=== PATIENT | male | born 1950 | race Caucasian/White ===

== ENCOUNTER 2020-04-21 05:02 | Emergency (ER) | payer OTHER, MEDICARE, SELFPAY ==
[2020-04-21 05:07] VITALS: BP 156/81; RESP 16; TEMP 36.8; O2SAT 95; BMI 31.3
--- NOTE | 2020-04-21 05:29 | ED_ITS ---
Documented by User: Migdalia Valadez 04/21/20 05:33 HPI - General Adult General: Chief complaint: General Medical Stated complaint: lower abdominal pain Time Seen by Provider: 04/21/20 05:08 Source: patient and family Mode of arrival: ambulatory Limitations: no limitations History of Present Illness: HPI narrative: Mr. Richards is a nice 70-year-old male who comes in with a complaint of pain in his rectum, difficulty urinating and loose stools. Patient states he woke up yesterday with the symptoms and they have progressively gotten worse. Initially he said the pain was between his scrotum and his rectum but now he feels it is more deep up inside his rectum. Patient thought he might be constipated and took a laxative and now has very loose stools that are hard to control at times. His stools have not been bloody. Patient is on Xarelto for A. fib. Patient states that he feels like he needs to urinate but cannot. He states when he does strain a small amount of stool come out but not much urine will come out. Patient does not believe he is had a good episode of emptying his bladder since yesterday morning. Patient denies any fever, chills, nausea, vomiting or flank pain. Patient did start Xarelto recently but denies any other new medications. He denies any similar symptoms in the past. Associated symptoms: Deny chest pain, confusion, diaphoresis, dyspnea, headache(s), malaise, nausea, rash, palpitations, syncope or vomiting Review of Systems Const: Denies: fever(s), chills, body aches, fatigue, malaise or diaphoresis Eyes: Denies: change in vision, blurry vision, photophobia, eye discomfort, eye discharge, eye redness or yellow eyes ENMT: Denies: throat pain, odynophagia, hoarseness, swelling of lips/tongue, ear or mastoid pain, ear discharge, change in hearing or nasal discharge Card: Denies: chest pain, palpitations, irregular heart rhythm, edema, lightheadedness, syncope, pre-syncope, dyspnea on exertion or orthopnea Resp: Denies: dyspnea, productive cough, non-productive cough, wheezing, hemoptysis or chest congestion GI: Denies: abdominal pain, nausea, vomiting, hematemesis, coffee ground emesis, heartburn, diarrhea, constipation, GI cramping, hematochezia or melena : Denies: flank pain, dysuria, urinary frequency, urinary urgency or hematuria Musc: Denies: neck pain, back pain, extremity pain, extremity swelling, joint pain, joint swelling, joint redness, joint warmth or joint stiffness Skin/Breast: Denies: rash, pruritus, erythema, skin pain or skin tenderness Neuro: Denies: headache(s), numbness in extremities, weakness in extremities, sensory changes, lack of coordination, difficulty walking, dizziness, vertigo, confusion, Slurred speech present or seizure-like activity Rashad/Lymph: Denies: easy bruising, easy bleeding, petechiae, purpura or enlarged lymph nodes All/Imm: Denies: urticaria, throat swelling, tongue swelling, facial swelling or acute wheezing PFSH ED PFSH: Medical History (Updated 04/21/20 @ 08:44 by Bharath Macedo DO) Atrial fibrillation Physical Exam Const: COMMON NORMALS: no acute distress, patient oriented x3, no limitations and alert GENERAL APPEARANCE: cooperative HENMT: COMMON NORMALS: normocephalic, atraumatic, external ears normal, EAC's normal and Normal external nose present HEAD & SCALP: normal to inspection, normocephalic and atraumatic FACE & SINUS: normal facial exam and face symmetric NOSE: Normal external nose present and Normal nares present EXTERNAL EAR: Yes external ears normal EXTERNAL AUDITORY CANAL: EAC's normal MOUTH: Normal oral and palatal mucosa present, lip normal and tongue normal Eye: COMMON NORMALS: Equal, round and reactive pupils present and conjunctivae normal GENERAL EYE: appearance normal, both eyes and all related structures ALIGNMENT: Yes alignment normal PERIORBITAL: periorbital findings normal EYELID: eyelids normal CONJUNCTIVA: Yes conjunctivae normal SCLERA: sclerae normal PUPIL: Yes Equal, round and reactive pupils present Neck/C-Spine: COMMON NORMALS: full ROM, no lymphadenopathy, supple, no meningeal signs and no JVD GENERAL: Yes normal visual inspection and Yes trachea midline Chest: COMMONS NORMALS: normal inspection of the chest and normal palpation of entire chest wall Resp: COMMON NORMALS: normal respiratory effort, No retractions, No use of accessory muscles and clear to auscultation bilaterally EFFORT & INSPECTION: Yes able to speak in complete sentences and Yes symmetric chest movement AUSCULTATION: clear to auscultation bilaterally, no crackles, no rales, no rhonchi and no wheezes Cardio: COMMON NORMALS: no JVD, regular rate, regular rhythm, S1 normal heart sound present and S2 normal heart sound present RATE: regular rate RHYTHM: regular rhythm HEART SOUNDS: S1 normal heart sound present, S2 normal heart sound present, no click, no gallops, no murmurs and no rubs GI: COMMON NORMALS: Soft to palpation and No hepatosplenomegaly present PALPATION: Yes Soft to palpation, No Tenderness to palpation present (GI), No Guarding due to palpation present (GI), No Rigid due to palpation, Yes No hepatosplenomegaly present, No Hernia present, No Palpable mass present and No Pulsatile mass present RECTAL EXAM: Yes normal sphincter tone, Yes heme negative stool and Yes prostate abnormal tender : COMMON NORMALS: Yes no CVA tenderness BLADDER/KIDNEY EXAM: Yes no CVA tenderness PENIS: normal penis SCROTUM: Yes testes descended bilaterally and No Scrotal tenderness present TESTES: Yes testicular lie normal Back/Pelvis: COMMON NORMALS: no CVA tenderness, thoracic and lumbar spine normal to inspection, no thoracic nor lumbar tenderness and thoraco-lumbar ROM normal Extremity: COMMON NORMALS: normal to inspection, full ROM, capillary refill normal, no joint enlargement, no clubbing, cyanosis or edema and no calf tenderness Neuro: COMMON NORMALS: patient oriented x3, CN's II-XII intact bilaterally, moves all extremities, no focal motor deficits and no sensory deficits noted SENSORIUM/ORIENTATION: Yes alert MENINGEAL SIGNS: Yes no meningeal signs SPEECH: speech normal Psych: COMMON NORMALS: mental status grossly normal, Normal thought process p resent, cooperative, normal affect, speech normal and activity/motor behavior normal SPEECH: Yes normal speech THOUGHT PROCESS: Normal thought process present Skin: COMMON NORMALS: no rashes or lesions noted, turgor normal, no jaundice, no petechiae and no mottling GENERAL SKIN EXAM: no rashes or lesions noted and turgor normal Course Vital Signs: Vital signs: Vital Signs Temperature 98.2 F 04/21/20 05:07 Pulse Rate 86 04/21/20 06:50 Respiratory Rate 20 H 04/21/20 06:50 Blood Pressure 149/87 04/21/20 06:50 Pulse Oximetry 93 04/21/20 06:50 MDM - General Adult Lab Data: Labs: Lab Results 04/21/20 04/21/20 04/21/20 Range/Units 05:41 05:41 05:41 WBC 8.9 (4.0-10.0) 10^3/ uL RBC 5.02 (4.1-5.3) 10^6/u L Hgb 14.0 (11.7-16.6) g/dL Hct 43.6 (42.0-52.0) % MCV 86.9 (80-94) fL MCH 27.9 L (28.0-34.0) pg MCHC 32.1 (30.0-36.0) g/dL RDW 15.9 H (12.1-15.1) % Plt Count 296 (130-400) 10^3/c mm MPV 9.8 (7.4-10.4) fL Neut % (Auto) 72.1 % Lymph % (Auto) 19.2 % [place] % (Auto) 6.9 % Eos % (Auto) 0.6 % Baso % (Auto) 0.6 % Neut # (Auto) 6.42 (1.8-7.7) 10^3/u L Lymph # (Auto) 1.7 (0.8-4.8) 10^3/u L [place] # (Auto) 0.6 (0.2-0.9) 10^3/u L Eos # (Auto) 0.1 (0.0-0.8) 10^3/u L Baso # (Auto) 0.1 (0.0-0.1) 10^3/u L Nucleated RBC % (a uto) 0 % Nucleated RBCs # 0.0 /100WBC PT 14.50 (12.1-14.9) SECO NDS INR 1.09 (0.8-1.2) Sodium 139 (136-145) mmol/L Potassium 3.9 (3.5-5.1) mmol/L Chloride 101 (98-107) mmol/L Carbon Dioxide 26 (22-29) mmol/L Anion Gap 15.9 (5-19) BUN 13 (8-23) mg/dL Creatinine 0.9 (0.7-1.2) mg/dL GFR Calculation 83.9 L (90-130) mL/min Glucose 118 H (65-115) mg/dL Calculated Osmolal ity 289 (285-295) mOsm/k g Calcium 8.8 (8.5-10.5) mg/dL Total Bilirubin 0.3 (0.15-1.2) mg/dL AST 18 (0-40) U/L ALT 15 (0-41) U/L Alkaline Phosphata se 118 (40-130) IU/L Total Protein 7.2 (6.6-8.7) g/dL Albumin 4.1 (3.5-5.2) g/dL Globulin 3.1 (1.3-4.6) g/dL Urine Color (Yellow) Urine Appearance (CLEAR) Urine pH (5-7) Ur Specific Gravit y (1.005-1.030) Urine Protein (Negative) Urine Glucose (UA) (Normal) Urine Ketones (Negative) Urine Blood (Negative) Urine Nitrate (Negative) Urine Bilirubin (Negative) Urine Urobilinogen (Negative) mg/dL Ur Leukocyte Tania ase (Negative) Urine RBC (0-2) /hpf Urine WBC (0-5) /hpf Ur Squamous Epith Cells (0-5) /hpf Amorphous Sediment Urine Bacteria (NONE) /hpf 04/21/20 Range/Units 06:30 WBC (4.0-10.0) 10^3/ uL RBC (4.1-5.3) 10^6/u L Hgb (11.7-16.6) g/dL Hct (42.0-52.0) % MCV (80-94) fL MCH (28.0-34.0) pg MCHC (30.0-36.0) g/dL RDW (12.1-15.1) % Plt Count (130-400) 10^3/c mm MPV (7.4-10.4) fL Neut % (Auto) % Lymph % (Auto) % [place] % (Auto) % Eos % (Auto) % Baso % (Auto) % Neut # (Auto) (1.8-7.7) 10^3/u L Lymph # (Auto) (0.8-4.8) 10^3/u L [place] # (Auto) (0.2-0.9) 10^3/u L Eos # (Auto) (0.0-0.8) 10^3/u L Baso # (Auto) (0.0-0.1) 10^3/u L Nucleated RBC % (a uto) % Nucleated RBCs # /100WBC PT (12.1-14.9) SECO NDS INR (0.8-1.2) Sodium (136-145) mmol/L Potassium (3.5-5.1) mmol/L Chloride (98-107) mmol/L Carbon Dioxide (22-29) mmol/L Anion Gap (5-19) BUN (8-23) mg/dL Creatinine (0.7-1.2) mg/dL GFR Calculation (90-130) mL/min Glucose (65-115) mg/dL Calculated Osmolal ity (285-295) mOsm/k g Calcium (8.5-10.5) mg/dL Total Bilirubin (0.15-1.2) mg/dL AST (0-40) U/L ALT (0-41) U/L Alkaline Phosphata se (40-130) IU/L Total Protein (6.6-8.7) g/dL Albumin (3.5-5.2) g/dL Globulin (1.3-4.6) g/dL Urine Color Straw (Yellow) Urine Appearance Clear (CLEAR) Urine pH 7 (5-7) Ur Specific Gravit y 1.010 (1.005-1.030) Urine Protein Neg (Negative) Urine Glucose (UA) Norm (Normal) Urine Ketones Negative (Negative) Urine Blood 2+ H (Negative) Urine Nitrate Negative (Negative) Urine Bilirubin Neg (Negative) Urine Urobilinogen Norm (Negative) mg/dL Ur Leukocyte Tania ase Negative (Negative) Urine RBC 10-15 H (0-2) /hpf Urine WBC None (0-5) /hpf Ur Squamous Epith Cells None (0-5) /hpf Amorphous Sediment Not Reportable Urine Bacteria 1+ H (NONE) /hpf Discharge Plan Discharge Patient Disposition: Home Clinical Impression: Bladder outlet obstruction, Benign prostatic hyperplasia, Constipation Condition: Stable Prescriptions: New tamsulosin 0.4 mg capsule 0.4 mg PO DAILY Qty: 30 RF: 0 magnesium citrate Solution 148 ml PO BID PRN (Reason: constipation) Qty: 296 RF: 0 Discharge Orders: Discharge ED (Routine); Ordered 04/21/20 Ordered By: Bharath Macedo Referrals: Martell Clay MD [Physician] - Activity Restrictions/Additional Instructions: Case management will call with a referral to Dr. Clay for management of the Daly catheter. Sign Out Sign Out Data: Patient Sign Out occurred on 04/21/20 at 06:13. Patient's care was discussed, and care was transferred from to Bharath Macedo DO. Coding Level of Care Code ED Hand Carver for Chg Fwd Exam Comprehensive Documented by User: Bharath Macedo DO 04/21/20 09:02 HPI - General Adult General: Chief complaint: General Medical Stated complaint: lower abdominal pain Time Seen by Provider: 04/21/20 05:08 [facility] ED PFSH: Medical History (Updated 04/21/20 @ 08:44 by Bharath Macedo DO) Atrial fibrillation Course Vital Signs: Vital signs: Vital Signs Temperature 98.2 F 04/21/20 05:07 Pulse Rate 86 04/21/20 06:50 Respiratory Rate 20 H 04/21/20 06:50 Blood Pressure 149/87 04/21/20 06:50 Pulse Oximetry 93 04/21/20 06:50 MDM - General Adult MDM Narrative: Medical decision making narrative: Symptoms mostly relieved by placement of the Daly had [address] shows large amount of constipation but there is no evidence of abscess or diverticulitis. Offered patient enema he declined ready use oral laxatives. We will discharge him home with a Daly bag tamsulosin, Mag citrate and then have him follow-up with Dr. Clay next week. Lab Data: Labs: Lab Results 04/21/20 04/21/20 04/21/20 Range/Units 05:41 05:41 05:41 WBC 8.9 (4.0-10.0) 10^3/ uL RBC 5.02 (4.1-5.3) 10^6/u L Hgb 14.0 (11.7-16.6) g/dL Hct 43.6 (42.0-52.0) % MCV 86.9 (80-94) fL MCH 27.9 L (28.0-34.0) pg MCHC 32.1 (30.0-36.0) g/dL RDW 15.9 H (12.1-15.1) % Plt Count 296 (130-400) 10^3/c mm MPV 9.8 (7.4-10.4) fL Neut % (Auto) 72.1 % Lymph % (Auto) 19.2 % [place] % (Auto) 6.9 % Eos % (Auto) 0.6 % Baso % (Auto) 0.6 % Neut # (Auto) 6.42 (1.8-7.7) 10^3/u L Lymph # (Auto) 1.7 (0.8-4.8) 10^3/u L [place] # (Auto) 0.6 (0.2-0.9) 10^3/u L Eos # (Auto) 0.1 (0.0-0.8) 10^3/u L Baso # (Auto) 0.1 (0.0-0.1) 10^3/u L Nucleated RBC % (a uto) 0 % Nucleated RBCs # 0.0 /100WBC PT 14.50 (12.1-14.9) SECO NDS INR 1.09 (0.8-1.2) Sodium 139 (136-145) mmol/L Potassium 3.9 (3.5-5.1) mmol/L Chloride 101 (98-107) mmol/L Carbon Dioxide 26 (22-29) mmol/L Anion Gap 15.9 (5-19) BUN 13 (8-23) mg/dL Creatinine 0.9 (0.7-1.2) mg/dL GFR Calculation 83.9 L (90-130) mL/min Glucose 118 H (65-115) mg/dL Calculated Osmolal ity 289 (285-295) mOsm/k g Calcium 8.8 (8.5-10.5) mg/dL Total Bilirubin 0.3 (0.15-1.2) mg/dL AST 18 (0-40) U/L ALT 15 (0-41) U/L Alkaline Phosphata se 118 (40-130) IU/L Total Protein 7.2 (6.6-8.7) g/dL Albumin 4.1 (3.5-5.2) g/dL Globulin 3.1 (1.3-4.6) g/dL Urine Color (Yellow) Urine Appearance (CLEAR) Urine pH (5-7) Ur Specific Gravit y (1.005-1.030) Urine Protein (Negative) Urine Glucose (UA) (Normal) Urine Ketones (Negative) Urine Blood (Negative) Urine Nitrate (Negative) Urine Bilirubin (Negative) Urine Urobilinogen (Negative) mg/dL Ur Leukocyte Tania ase (Negative) Urine RBC (0-2) /hpf Urine WBC (0-5) /hpf Ur Squamous Epith Cells (0-5) /hpf Amorphous Sediment Urine Bacteria (NONE) /hpf 04/21/20 Range/Units 06:30 WBC (4.0-10.0) 10^3/ uL RBC (4.1-5.3) 10^6/u L Hgb (11.7-16.6) g/dL Hct (42.0-52.0) % MCV (80-94) fL MCH (28.0-34.0) pg MCHC (30.0-36.0) g/dL RDW (12.1-15.1) % Plt Count (130-400) 10^3/c mm MPV (7.4-10.4) fL Neut % (Auto) % Lymph % (Auto) % [place] % (Auto) % Eos % (Auto) % Baso % (Auto) % Neut # (Auto) (1.8-7.7) 10^3/u L Lymph # (Auto) (0.8-4.8) 10^3/u L [place] # (Auto) (0.2-0.9) 10^3/u L Eos # (Auto) (0.0-0.8) 10^3/u L Baso # (Auto) (0.0-0.1) 10^3/u L Nucleated RBC % (a uto) % Nucleated RBCs # /100WBC PT (12.1-14.9) SECO NDS INR (0.8-1.2) Sodium (136-145) mmol/L Potassium (3.5-5.1) mmol/L Chloride (98-107) mmol/L Carbon Dioxide (22-29) mmol/L Anion Gap (5-19) BUN (8-23) mg/dL Creatinine (0.7-1.2) mg/dL GFR Calculation (90-130) mL/min Glucose (65-115) mg/dL Calculated Osmolal ity (285-295) mOsm/k g Calcium (8.5-10.5) mg/dL Total Bilirubin (0.15-1.2) mg/dL AST (0-40) U/L ALT (0-41) U/L Alkaline Phosphata se (40-130) IU/L Total Protein (6.6-8.7) g/dL Albumin (3.5-5.2) g/dL Globulin (1.3-4.6) g/dL Urine Color Straw (Yellow) Urine Appearance Clear (CLEAR) Urine pH 7 (5-7) Ur Specific Gravit y 1.010 (1.005-1.030) Urine Protein Neg (Negative) Urine Glucose (UA) Norm (Normal) Urine Ketones Negative (Negative) Urine Blood 2+ H (Negative) Urine Nitrate Negative (Negative) Urine Bilirubin Neg (Negative) Urine Urobilinogen Norm (Negative) mg/dL Ur Leukocyte Tania ase Negative (Negative) Urine RBC 10-15 H (0-2) /hpf Urine WBC None (0-5) /hpf Ur Squamous Epith Cells None (0-5) /hpf Amorphous Sediment Not Reportable Urine Bacteria 1+ H (NONE) /hpf Discharge Plan Discharge Patient Disposition: Home Clinical Impression: Bladder outlet obstruction, Benign prostatic hyperplasia, Constipation Condition: Stable Prescriptions: New tamsulosin 0.4 mg capsule 0.4 mg PO DAILY Qty: 30 RF: 0 magnesium citrate Solution 148 ml PO BID PRN (Reason: constipation) Qty: 296 RF: 0 Discharge Orders: Discharge ED (Routine); Ordered 04/21/20 Ordered By: Bharath Macedo Referrals: Martell Clay MD [Physician] - Activity Restrictions/Additional Instructions: Case management will call with a referral to Dr. Clay for management of the Daly catheter. Sign Out Sign Out Data: Patient Sign Out occurred on 04/21/20 at 06:13. Patient's care was discussed, and care was transferred from to Bharath Macedo DO. Coding Level of Care Code ED Hand Carver for Chg Fwd Exam Comprehensive
[2020-04-21] MEDS: sodium chloride 0.9% 1,000 ML 100 ML IV (06:00)
[2020-04-21 06:10] LABS: Basophils # 0.1 10^3/uL (0.0-0.1); Basophils % 0.6 %; Eosinophils # 0.1 10^3/uL (0.0-0.8); Eosinophils % 0.6 %; Hematocrit 43.6 % (42.0-52.0); Lymphocytes # 1.7 10^3/uL (0.8-4.8); Lymphocytes % 19.2 %; Mean Corpuscular HGB Conc 32.1 g/dL (30.0-36.0); Mean Corpuscular Hemoglobin 27.9 pg (28.0-34.0); Mean Corpuscular Volume 86.9 fL (80-94); Mean Platelet Volume 9.8 fL (7.4-10.4); Monocytes # 0.6 10^3/uL (0.2-0.9); Monocytes % 6.9 %; Neutrophils # 6.42 10^3/uL (1.8-7.7); Neutrophils % 72.1 %; Nucleated Red Blood Cells % 0 %; Platelet Count 296 10^3/cmm (130-400); Red Blood Count 5.02 10^6/uL (4.1-5.3); Red Cell Distribution Width 15.9 % (12.1-15.1); White Blood Count 8.9 10^3/uL (4.0-10.0)
[2020-04-21 06:15] VITALS: RESP 24; O2SAT 94
[2020-04-21] MEDS: morphine 4 mg/mL SDV 1 mL IVP (06:15)
[2020-04-21 06:22] LABS: INR 1.09 (0.8-1.2)
[2020-04-21 06:27] LABS: Alanine Aminotransferase 15 U/L (0-41); Albumin Level 4.1 g/dL (3.5-5.2); Alkaline Phosphatase 118 IU/L (40-130); Anion Gap 15.9 (5-19); Aspartate Amino Transferase 18 U/L (0-40); Blood Urea Nitrogen 13 mg/dL (8-23); Calcium 8.8 mg/dL (8.5-10.5); Carbon Dioxide 26 mmol/L (22-29); Chloride 101 mmol/L (98-107); Globulin 3.1 g/dL (1.3-4.6); Glomerular Filtration Rate 83.9 mL/min (90-130); Glucose 118 mg/dL (65-115); Osmolality Calculated 289 mOsm/kg (285-295); Potassium 3.9 mmol/L (3.5-5.1); Sodium 139 mmol/L (136-145); Total Bilirubin 0.3 mg/dL (0.15-1.2); Total Protein 7.2 g/dL (6.6-8.7)
[2020-04-21 06:50] VITALS: BP 149/87; PULSE 86; RESP 20; O2SAT 93
--- NOTE | 2020-04-21 06:57 | PC.NURSE ---
700cc urine return. Dr jalloh
[2020-04-21 07:00] VITALS: BP 139/84; PULSE 84; O2SAT 91
[2020-04-21 07:26] LABS: Bacteria Urine 1+ /hpf; Bilirubin Urine Neg (Negative); Blood Urine 2+ (Negative); Glucose Urine UA Norm (Normal); Ketones Urine Negative (Negative); Leukocyte Esterase Urine Negative (Negative); Nitrate Urine Negative (Negative); Protein Urine Neg (Negative); Urine Appearance Clear (CLEAR); Urine Color Straw (Yellow); Urobilinogen Urine Norm (Negative); pH Urine 7 (5-7)
[2020-04-21 07:27] LABS: Add Urine Culture? No
--- NOTE | 2020-04-21 07:34 | CTR_ITS ---
PROCEDURE INFORMATION: Exam: CT Abdomen And Pelvis With Contrast Exam date and time: 04/21/2020 7:40 AM Age: 70 years old Clinical indication: Abdominal pain; Localized; Lower; Additional info: Abd pain/pelvic pain TECHNIQUE: Imaging protocol: Computed tomography of the abdomen and pelvis with intravenous contrast. Radiation optimization: All CT scans at this facility use at least one of these dose optimization techniques: automated exposure control; mA and/or kV adjustment per patient size (includes targeted exams where dose is matched to clinical indication); or iterative reconstruction. Contrast material: OMNI 300; Contrast volume: 95 ml; Contrast route: INTRAVENOUS (IV); COMPARISON: No relevant prior studies available. RADIATION DOSE METRICS: Total DLP (mGy-cm): 1443.15 FINDINGS: Lungs: Interstitial prominence, chronic granulomatous disease, and left basilar airspace disease. Small hiatal hernia. Liver: No focal hepatic mass. Gallbladder and bile ducts: No cholelithiasis or biliary ductal dilatation. Pancreas: No pancreatic mass or ductal dilatation. Spleen: Splenic granulomata. Adrenal glands: Unremarkable adrenals. Kidneys and ureters: Nodular hypodensities in the right kidney, including a 2.1 cm lateral cyst. No hydronephrosis . Mild bilateral infiltration of perinephric fat. Stomach and bowel: Wall thickening in the nondistended stomach. No significant small bowel dilatation. Prominent stool in a pattern of constipation and impending fecal impaction, with the stool-filled rectum measuring 6 cm in transverse dimension. Mild infiltration of perirectal fat. Diverticula, without pericolonic inflammation. Appendix: No acute appendicitis. Intraperitoneal space: No free fluid. Vasculature: Prominent vascular calcification. No abdominal aortic aneurysm. Lymph nodes: Subcentimeter lymph nodes. Urinary bladder: Daly catheter in the decompressed bladder. Reproductive: Punctate prostate calcification. Bones/joints: Osteopenia and T11 compression deformity. Schmorl's nodes and vertebral endplate irregularity. Degenerative change prior Soft tissues: Small fat containing umbilical and inguinal hernias. CT/CT abdomen pelvis w con* [id number] IMPRESSION: 1. Wall thickening in the nondistended stomach. 2. Prominent stool in a pattern of constipation and impending fecal impaction, with the stool-filled rectum measuring 6 cm in transverse dimension. 3. Additional findings as described above. COMMENTS: Consistent with the [employer]'s Incidental Findings Committee white paper (J Am Laura Radiol 2018): Any incidental renal lesion less than 1 cm or classified as too small to characterize, or any incidental cystic renal lesion characterized as simple-appearing, is likely benign. No follow-up imaging is recommended for these lesions per consensus recommendations based on imaging criteria. Radiation Dose CTDIVOL = (mGy): DLP = 1443.15 (mGy-cm)
[2020-04-21 07:45] VITALS: BP 152/88; PULSE 82; O2SAT 92
[2020-04-21] MEDS: iohexol 300 mg/mL 100 mL Btl IV (07:59)
[2020-04-21 08:45] VITALS: BP 173/101; PULSE 83; O2SAT 94
--- NOTE | 2020-04-23 08:38 | DCPLANNER ---
Addendum entered by Nasrin Albert 04/23/20 08:41: Patient has [facility] insurance, disability case manager will email Eugenia with [facility] with patients information, so that a consult can be placed for the patient for a referral to Dr. Clay. Original Note: rehab therapy manager had message to schedule a follow up appointment for patient with Dr. Clay. rehab therapy manager called the office of Dr. Clay, spoke with Shea, gave clinic patients information. rehab therapy manager was told that patients information would be printed and reviewed. Clinic will call patient with appointment information.
--- NOTE | 2020-04-27 08:27 | DCPLANNER ---
Patient has a follow up appointment scheduled for Thursday, May 09, [address] at 8:[address] Clay. Clinic will call patient with appointment information.
--- NOTE | 2020-06-01 14:19 | DCPLANNER ---
Patient had a follow up appointment scheduled for 05.09.[address] Clay - patient did attend the appointment.
== END 2020-04-21 09:03 | disposition home or self-care (01) ==
PROVIDERS: Emergency Medicine; Emergency Provider Family Medicine
DX: N40.0 Benign prostatic hyperplasia without lower urinary tract symptoms (principal); N32.0 Bladder-neck obstruction; K59.00 Constipation, unspecified; I48.91 Unspecified atrial fibrillation
CPT/HCPCS: 12345; 36415; 51702; 51798; 74177; 80053; 81001; 85025; 85610; 96374; 99283; J2270; J7030; Q9967

== ENCOUNTER 2020-04-21 17:27 | Emergency (ER) | payer OTHER, SELFPAY ==
[2020-04-21 17:50] VITALS: BP 122/81; PULSE 89; RESP 18; TEMP 36.8; O2SAT 96; BMI 31.3
--- NOTE | 2020-04-21 18:00 | ED_ITS ---
HPI - General Adult General: Chief complaint: Abdominal Pain Stated complaint: abd pain, constipation Time Seen by Provider: 04/21/20 17:46 History of Present Illness: HPI narrative: Patient is a 70-year-old male comes to the ED with constipation. Patient says he was seen here in the ED earlier this morning for urinary retention and had a Daly catheter placed. CT of the abdomen was performed and patient says they told him he had a lot of stool in his bowels. They sent him home with some mag citrate. Patient says he is drink the mag citrate and has taken MiraLAX as well and has not had any bowel movement today. He says it has been approximately 2 days since his last bowel movement and he did say that last BM was hard and he had to strain to get it out. He has some generalized abdominal pain due to constipation. Associated symptoms: Deny chest pain, dyspnea, headache(s), nausea, rash, palpitations or vomiting Review of Systems Const: Denies: fever(s), chills or fatigue Eyes: Denies: change in vision or eye discomfort ENMT: Denies: throat pain, odynophagia, nasal discharge or nasal congestion Card: Denies: chest pain, palpitations, edema, swelling of feet/ankles, dyspnea on exertion or orthopnea Resp: Denies: dyspnea, productive cough or non-productive cough GI: Reports: abdominal pain (Generalized) and constipation; Denies: nausea, vomiting, diarrhea or hematochezia : Denies: flank pain, difficulty urinating, dysuria or hematuria Musc: Denies: neck pain, back pain or extremity swelling Skin/Breast: Denies: rash or new lesions Neuro: Denies: headache(s), numbness in extremities or weakness in extremities PFS ED PFSH: Medical History Anticoagulation adequate with anticoagulant therapy Atrial fibrillation Chest pain Essential hypertension SOB (shortness of breath) Family History Other CAD (coronary artery disease) Cancer Diabetes Social History Smoking and tobacco status: current every day smoker cigarettes Alcohol intake: current Alcohol intake frequency: 0-2 Drinks per Day Household members: spouse Marital status: service: Yes branch: [employer] Physical Exam Const: COMMON NORMALS: no acute distress, patient oriented x3 and alert GENERAL APPEARANCE: cooperative and comfortable HENMT: COMMON NORMALS: normocephalic HEAD & SCALP: normocephalic MOUTH: Normal oral and palatal mucosa present THROAT: posterior oropharynx normal and uvula midline Neck/C-Spine: COMMON NORMALS: supple GENERAL: Yes normal visual inspection Resp: COMMON NORMALS: normal respiratory effort, No retractions, No use of accessory muscles and clear to auscultation bilaterally AUSCULTATION: clear to auscultation bilaterally Cardio: COMMON NORMALS: regular rate, regular rhythm, S1 normal heart sound present, S2 normal heart sound present, No gallops present (Cardio), No clicks present (Cardio), No murmurs present (Cardio) and Peripheral pulses 2+ through out RATE: regular rate RHYTHM: regular rhythm HEART SOUNDS: S1 normal heart sound present and S2 normal heart sound present PERIPHERAL PULSES: Peripheral pulses 2+ throughout GI: COMMON NORMALS: Normal to inspection, nondistended, normoactive bowel sounds present and no masses PALPATION: Yes Firmness to palpation present (GI) and Yes Tenderness to palpation present (GI) (Mild tenderness throughout abdomen.) : COMMON NORMALS: Yes no CVA tenderness BLADDER/KIDNEY EXAM: Yes catheter in place and Yes no CVA tenderness Back/Pelvis: COMMON NORMALS: no CVA tenderness Extremity: COMMON NORMALS: normal to inspection and no pedal edema Neuro: COMMON NORMALS: patient oriented x3 and moves all extremities SENSORIUM/ORIENTATION: Yes alert Skin: GENERAL SKIN EXAM: dry skin Course Reevaluation(s): Reevaluation #1: Patient was able to pass a little bit of stool after first milk and molasses enema. He still feels like he has more that could come out. He would like another enema and I informed him to stand up and ambulate around the room to help progress bowel movement. Time: 20:16 Reevaluation #2: Patient received a second milk and molasses enema and quite a bit of stool has come out. He says he is feeling a lot better currently. I did check to the bedside commode and saw significant amount of hard formed stool in pot and it appears that most of the fecal impaction as been expelled. I discussed with patient about high-fiber diets and drinking plenty of water. I also told on him and put him on some MiraLAX and Colace to help with bowel movements. Patient is ready to be discharged home. Time: 21:53 Vital Signs: Vital signs: Vital Signs Temperature 98.2 F 04/21/20 17:50 Pulse Rate 82 04/21/20 22:09 Respiratory Rate 18 04/21/20 22:09 Blood Pressure 122/77 04/21/20 22:09 Pulse Oximetry 96 04/21/20 22:09 MDM - General Adult MDM Narrative: Medical decision making narrative: Patient is a 70-year-old male comes to the ED with constipation. He was seen here in the ED earlier in the morning of April 21 for urinary retention. Daly catheter was placed and the CT of his abdomen showed possible fecal impaction developing. He was discharged with mag citrate. He took the mag citrate today and has not had a bowel movement and is coming back to the ED for further evaluation. Patient was given 2 milk and molasses enemas while here in the ED. Patient passed large amount of hard stool while here in the ED. His symptoms improved and he was ready to go home. Patient diagnosed with fecal impaction and constipation and sent home with a prescription for MiraLAX and Colace. He was told to drink plenty of fluids and stay hydrated and eat a high-fiber diet. Follow-up with [facility] in 7 to 10 days for reevaluation. Return to ED precautions given. Patient understood and agreed with plan. Imaging Data^: KUB: Attestation: I personally reviewed and interpreted this imaging study as follows: Radiologist's impression: [address] [address] XRay Report Signed Patient: Hiram Richards Unit #: [id number] : 1950 Age/Sex: 70 / M ADM Date: 04/21/20 Loc: ER Room/Bed: Attending Dr: Ordering Provider/Ordering MD: Dada Syed Date of Service: 04/21/20 Procedure(s): XR KUB portable [id number] Accession Number(s): [id number] Report Number: [id number] PROCEDURE INFORMATION: Exam: XR Abdomen, 1 View Exam date and time: 04/21/2020 6:28 PM Age: 70 years old Clinical indication: Constipation TECHNIQUE: Imaging protocol: XR of the abdomen. Views: Frontal supine view of the abdomen. 1 View. COMPARISON: No relevant prior studies available. FINDINGS: Gastrointestinal tract: Heavy fecal residue suggesting constipation. Grossly nonobstructive bowel pattern. Bones/joints: Unremarkable as visualized. Other findings: Limited diagnostic quality. Obesity. XR/XR KUB portable [id number] IMPRESSION: Constipation. Dictated By: Efraín Car Signed By: Efraín Car Signed Date/Time: 04/21/201852 DD/ 51 CT Abd/Pel: Attestation: I personally reviewed and interpreted this imaging study as follo ws: My impression: Below is the CT of the abdomen that was performed earlier this morning. I reviewed the radiologist report and I did mention possible impending fecal impaction in the rectum with stool measuring 6 cm in diameter. Radiologist's impression: [place] [address] CT Scan Report Signed Patient: Hiram Richards Unit #: [id number] : 1950 1 Age/Sex: 70 / M ADM Date: 04/21/20 Loc: ER Room/Bed: Attending Dr: Ordering Provider/Ordering MD: Bharath Macedo DO Date of Service: 04/21/20 Procedure(s): CT abdomen pelvis w con* [id number] Accession Number(s): [id number] Report Number: [id number] PROCEDURE INFORMATION: Exam: CT Abdomen And Pelvis With Contrast Exam date and time: 04/21/2020 7:40 AM Age: 70 years old Clinical indication: Abdominal pain; Localized; Lower; Additional info: Abd pain/pelvic pain TECHNIQUE: Imaging protocol: Computed tomography of the abdomen and pelvis with intravenous contrast. Radiation optimization: All CT scans at this facility use at least one of these dose optimization techniques: automated exposure control; mA and/or kV adjustment per patient size (includes targeted exams where dose is matched to clinical indication); or iterative reconstruction. Contrast material: OMNI 300; Contrast volume: 95 ml; Contrast route: INTRAVENOUS (IV); COMPARISON: No relevant prior studies available. RADIATION DOSE METRICS: Total DLP (mGy-cm): 1443.15 FINDINGS: Lungs: Interstitial prominence, chronic granulomatous disease, and left basilar airspace disease. Small hiatal hernia. Liver: No focal hepatic mass. Gallbladder and bile ducts: No cholelithiasis or biliary ductal dilatation. Pancreas: No pancreatic mass or ductal dilatation. Spleen: Splenic granulomata. Adrenal glands: Unremarkable adrenals. Kidneys and ureters: Nodular hypodensities in the right kidney, including a 2.1 cm lateral cyst. No hydronephrosis . Mild bilateral infiltration of perinephric fat. Stomach and bowel: Wall thickening in the nondistended stomach. No significant small bowel dilatation. Prominent stool in a pattern of constipation and impending fecal impaction, with the stool-filled rectum measuring 6 cm in transverse dimension. Mild infiltration of perirectal fat. Diverticula, without pericolonic inflammation. Appendix: No acute appendicitis. Intraperitoneal space: No free fluid. Vasculature: Prominent vascular calcification. No abdominal aortic aneurysm. Lymph nodes: Subcentimeter lymph nodes. Urinary bladder: Daly catheter in the decompressed bladder. Reproductive: Punctate prostate calcification. Bones/joints: Osteopenia and T11 compression deformity. Schmorl's nodes and vertebral endplate irregularity. Degenerative change prior Soft tissues: Small fat containing umbilical and inguinal hernias. CT/CT abdomen pelvis w con* [id number] IMPRESSION: 1. Wall thickening in the nondistended stomach. 2. Prominent stool in a pattern of constipation and impending fecal impaction, with the stool-filled rectum measuring 6 cm in transverse dimension. 3. Additional findings as described above. COMMENTS: Consistent with the [employer]'s Incidental Findings Committee white paper (J Am Laura Radiol 2018): Any incidental renal lesion less than 1 cm or classified as too small to characterize, or any incidental cystic renal lesion characterized as simple-appearing, is likely benign. No follow-up imaging is recommended for these lesions per consensus recommendations based on imaging criteria. Radiation Dose CTDIVOL = (mGy): DLP = 1443.15 (mGy-cm) Dictated By: Bienvenido Pepper MD Signed By: Bienvenido Pepper MD Signed Date/Time: 04/21/20816 DD/ 6 Discharge Plan Discharge Patient Disposition: Home Clinical Impression: Fecal impaction in rectum Constipation Qualifiers: Constipation type: unspecified constipation type Qualified Code(s): K59.00 - Constipation, unspecified Condition: Stable Prescriptions: New Miralax 17 gram/dose powder 17 g PO DAILY PRN (Reason: constipation) Qty: 119 RF: 0 Colace 100 mg capsule 100 mg PO BID PRN (Reason: constipation) Qty: 30 RF: 0 No Action omeprazole 40 mg capsule,delayed release(DR/EC) 40 mg PO DAILY RF: 0 diltiazem HCl 360 mg capsule,extended release 24hr 360 mg PO QAM RF: 0 gabapentin 600 mg tablet 600 mg PO BID RF: 0 Xarelto 15 mg tablet 15 mg PO DAILY RF: 0 Discharge Orders: Discharge ED (Routine); Ordered 04/21/20 Ordered By: Dada Syed Referrals: Kyler Llanes [Primary Care Provider] - Discharge Diet: Regular Discharge Activity: Resume usual activity Patient Instructions: Constipation (ED), Fecal Impaction (ED) Activity Restrictions/Additional Instructions: Follow-up with medical provider as directed in 7-10 days. Take medications as prescribed. Drink plenty of fluids and stay hydrated. Been up and ambulating and active also helps with bowel movements. Return to the ER or your medical provider if condition worsens. Please read and understand discharge instructions. If any questions, please ask. Coding Level of Care Code ED Photoengraving Apprentice for Courtney Fwd Exam Comprehensive
--- NOTE | 2020-04-21 21:42 | PC.NURSE ---
2nd emema given per order. pt reports relief after a bowel movement. Provider Dada GOLDBERG notified.
[2020-04-21 22:09] VITALS: BP 122/77; PULSE 82; RESP 18; O2SAT 96
== END 2020-04-21 22:13 | disposition home or self-care (01) ==
PROVIDERS: Emergency Provider Physician Assistant; PCP Internal Medicine
DX: K59.00 Constipation, unspecified (principal); I48.91 Unspecified atrial fibrillation; I10 Essential (primary) hypertension; F17.210 Nicotine dependence, cigarettes, uncomplicated
CPT/HCPCS: 12345; 74018; 99281; 99282

== ENCOUNTER → 2020-06-21 08:42 | Outpatient (BNVA) | payer OTHER, SELFPAY | PROVIDERS: PCP Family Medicine; Visit Provider Urology | DX: R33.9 Retention of urine, unspecified (principal); N40.1 Benign prostatic hyperplasia with lower urinary tract symptoms; R97.20 Elevated prostate specific antigen [PSA] | CPT/HCPCS: 81003 ==

== ENCOUNTER → 2020-09-19 07:54 | Outpatient (BNVA) | payer OTHER, SELFPAY | PROVIDERS: PCP Family Medicine; Visit Provider Urology | DX: N40.1 Benign prostatic hyperplasia with lower urinary tract symptoms (principal); R33.9 Retention of urine, unspecified; R97.20 Elevated prostate specific antigen [PSA] | CPT/HCPCS: 84153 ==

== ENCOUNTER 2020-11-10 06:40 | Emergency (ER) | payer OTHER, MEDICARE, SELFPAY ==
[2020-11-10 06:47] VITALS: BP 165/87; PULSE 95; RESP 16; TEMP 36.7; O2SAT 94; BMI 33.4
--- NOTE | 2020-11-10 06:56 | XRR_ITS ---
PROCEDURE INFORMATION: Exam: XR Lumbosacral Spine Exam date and time: 11/10/2020 6:56 AM Age: 70 years old Clinical indication: Low back pain; Prior surgery; Additional info: Pain right lower back TECHNIQUE: Imaging protocol: XR of the lumbosacral spine. Views: 2 or 3 views. COMPARISON: CT abdomen pelvis w con* [id number] 04/21/2020 7:49 AM FINDINGS: Bones/joints: No fracture or other acute bony abnormalities are seen. Chronic degenerative changes are present with scattered sclerosis and small osteophytes. There is sclerosis and narrowing of the lumbar facet joints. There is no malalignment. Soft tissues: Unremarkable. Vasculature: There is prominent calcification of the aorta. XR/XR lumbar spine 2-3V* [id number] IMPRESSION: Moderate chronic degenerative disease predominantly in the lumbar facet joints. No acute abnormality.
--- NOTE | 2020-11-10 06:57 | ED_ITS ---
HPI - Back Pain/Injury General: Chief Complaint: Back Pain/Injury Stated Complaint: BACK PAIN Time Seen by Provider: 11/10/20 06:51 Source: patient and family () Mode of arrival: ambulatory Limitations: no limitations History of Present Illness: HPI Narrative: Patient with back pain since lifting a heavy object 3 weeks ago. States he has lower lumbar pain that radiates into his right hip. Denies any fall. MD elicited complaint: back pain and back injury Pertinent past history: prior back pain Onset (ago): week(s) (3) Timing: constant (Waxes and wanes) Severity: moderate Quality: sharp Location: lumbar spine and sacrum Radiation: buttocks (Right) Exacerbating factors: movement Relieving factors: none Context: while lifting Associated symptoms: Reports arthralgias and myalgias; Deny abdominal pain, change in bowel habits, difficulty walking, dysuria, fecal incontinence, fever(s), hematuria, numbness, tingling/numbness/burning or urinary urgency Work related injury: No Review of Systems Const: Denies: fever(s) Eyes: Denies: change in vision ENMT: Denies: throat pain Card: Denies: chest pain or palpitations Resp: Denies: dyspnea or wheezing GI: Denies: abdominal pain, fecal incontinence or change in bowel habits : Denies: dysuria, urinary urgency or hematuria Musc: Reports: back pain; Denies: neck pain Skin/Breast: Denies: rash or pruritus Neuro: Denies: difficulty walking Psych: Denies: anxiety Rashad/Lymph: Denies: enlarged lymph nodes PFSH ED PFSH: Medical History Anticoagulation adequate with anticoagulant therapy Atrial fibrillation Atrial fibrillation BPH loc w urin obs/LUTS Chest pain Elevated PSA Essential hypertension SOB (shortness of breath) Urinary retention Surgical History S/P cataract extraction Family History Other CAD (coronary artery disease) Cancer Diabetes Social History Smoking and tobacco status: current every day smoker cigarettes Alcohol intake: current Alcohol intake frequency: 0-2 Drinks per Day Household members: spouse Marital status: service: Yes branch: [employer] Current occupational status: retired Physical Exam Const: COMMON NORMALS: no acute distress, patient oriented x3, no limitations and well nourished GENERAL APPEARANCE: cooperative HENMT: COMMON NORMALS: normocephalic and atraumatic HEAD & SCALP: no rmocephalic and atraumatic FACE & SINUS: normal facial exam Eye: COMMON NORMALS: EOMs intact bilaterally Neck/C-Spine: COMMON NORMALS: full ROM, no lymphadenopathy, supple and no meningeal signs GENERAL: Yes normal visual inspection Lymph: LYMPHATIC: no lymphadenopathy noted Chest: COMMONS NORMALS: normal inspection of the chest and normal palpation of entire chest wall CHEST: No Ecchymosis present and No rash Resp: COMMON NORMALS: normal respiratory effort, No retractions and clear to auscultation bilaterally EFFORT & INSPECTION: No respiratory distress AUSCULTATION: clear to auscultation bilaterally Cardio: COMMON NORMALS: regular rate, regular rhythm and Peripheral pulses 2+ throughout JUGULAR VENOUS DISTENTION: no JVD RATE: regular rate RHYTHM: regular rhythm PERIPHERAL PULSES: Peripheral pulses 2+ throughout GI: COMMON NORMALS: Normal to inspection, nondistended, normoactive bowel sounds present and non-tender : COMMON NORMALS: Yes no CVA tenderness BLADDER/KIDNEY EXAM: Yes no CVA tenderness Back/Pelvis: COMMON NORMALS: no CVA tenderness GENERAL BACK: Yes tenderness (Mild tenderness along the lower paraspinal muscles of the lumbar spine) OTHER: Mild pain into the right SI joint. No rash or deformity noted. No step- off. Extremity: COMMON NORMALS: normal to inspection, full ROM and capillary refill normal Neuro: COMMON NORMALS: patient oriented x3, CN's II-XII intact bilaterally, no focal motor deficits, no sensory deficits noted and deep tendon reflexes 2+ sukhjinder aterally MENINGEAL SIGNS: Yes no meningeal signs Psych: COMMON NORMALS: mental status grossly normal and Normal thought process present THOUGHT PROCESS: Normal thought process present Skin: COMMON NORMALS: no rashes or lesions noted and no wounds GENERAL SKIN EXAM: no rashes or lesions noted Course Vital Signs: Vital signs: Vital Signs Temperature 98.1 F 11/10/20 06:47 Pulse Rate 95 11/10/20 06:47 Respiratory Rate 16 11/10/20 06:47 Blood Pressure 165/87 11/10/20 06:47 Pulse Oximetry 94 11/10/20 06:47 MDM - Back Pain/Injury MDM Narrative: Medical decision making narrative: See nursing assessment Differential Diagnosis: Differential diagnosis back pain/injury: Likely lumbar radiculopathy and sciatica Imaging Data^: Xray Ortho: Attestation: I personally reviewed and interpreted this imaging study as follows: My impression: L-spine x-rays show nothing acute. No fracture seen. Patient does have some atherosclerosis of his lower aorta. Discharge Plan Discharge Patient Disposition: Home Clinical Impression: Sciatica, Lumbar radiculopathy Condition: Stable Prescriptions: New hydrocodone-acetaminophen 5-325 mg tablet 1 tab PO Q6H PRN (Reason: pain) Qty: 20 RF: 0 prednisone 20 mg tablet 20 mg PO DAILY 5 Days RF: 1 No Action omeprazole 40 mg capsule,delayed release(DR/EC) 40 mg PO DAILY RF: 0 diltiazem HCl 360 mg capsule,extended release 24hr 360 mg PO QAM RF: 0 gabapentin 600 mg tablet 600 mg PO BID RF: 0 Xarelto 15 mg tablet 15 mg PO DAILY RF: 0 tamsulosin 0.4 mg capsule 0.4 mg PO DAILY Qty: 90 RF: 3 magnesium citrate Solution 148 ml PO BID PRN (Reason: constipation) Qty: 296 RF: 0 Miralax 17 gram/dose powder 17 g PO DAILY PRN (Reason: constipation) Qty: 119 RF: 0 Colace 100 mg capsule 100 mg PO BID PRN (Reason: constipation) Qty: 30 RF: 0 Discharge Orders: Discharge ED (Routine); Ordered 11/10/20 Ordered By: Víctor Benavides Referrals: Vee Encarnacion MD [Primary Care Provider] - Discharge Activity: Increase activity as tolerated Patient Instructions: Sciatica (ED), Lumbar Radiculopathy (ED), Opioid Safety Activity Restrictions/Additional Instructions: Follow-up with your family doctor next week if pain does not improve for possible MRI of your back. Coding Level of Care Code ED Welder Pipe Making for Wayneg Fwd Exam Comprehensive
[2020-11-10 08:03] VITALS: BP 153/79; PULSE 78; RESP 16; O2SAT 97
== END 2020-11-10 08:04 | disposition home or self-care (01) ==
PROVIDERS: Emergency Provider Family Medicine; PCP Family Medicine
DX: M54.16 Radiculopathy, lumbar region (principal); M54.30 Sciatica, unspecified side; I10 Essential (primary) hypertension; F17.210 Nicotine dependence, cigarettes, uncomplicated
CPT/HCPCS: 72100; 96372; 99283; J2930

== ENCOUNTER → 2021-08-23 08:32 | Outpatient (BNVA) | payer OTHER, SELFPAY | PROVIDERS: PCP Family Medicine; Visit Provider Nurse Practitioner Family | DX: I48.0 Paroxysmal atrial fibrillation (principal); I10 Essential (primary) hypertension; Z79.01 Long term (current) use of anticoagulants; F17.210 Nicotine dependence, cigarettes, uncomplicated | CPT/HCPCS: 80048; 83880; 93005; 99214 ==

== ENCOUNTER 2021-08-29 09:00 | Outpatient (CLI) | payer OTHER, SELFPAY ==
--- NOTE | 2021-08-29 09:08 | USCV_ITS ---
Hiram Richards Age: 71 Gender: M : 1950 Exam Date: 08/29/2021 09:32 Ordering Phys: Vee Encarnacion MD Technologist: Ashley Wise Exam Location: [facility] [place] Indication: PAIN IN FEET WORKING UP LEGS. SWELLING LT MORE THAN RT Risk Factors: Previous Vascular Surgery: RIGHT LEFT BP: 120.0 / BP: 120.0/ 0 0 Waveform Velocity (cm/s) Velocity (cm/s) Waveform Triphasic 98.1 Iliac Prox 148.0 Triphasic Triphasic 78.3 Iliac Mid 98.7 Triphasic Triphasic 122.4 Iliac Distal 149.6 Triphasic Triphasic 126.8 PAN WASHER HAND 128.7 Triphasic Triphasic 81.6 SFA Prox 106.2 Triphasic Triphasic 80.5 SFA Mid 101.3 Triphasic Triphasic SFA Dist Triphasic 86.0 83.5 Triphasic 77.2 POP 67.0 Triphasic Triphasic 59.0 NETWORK ACCOUNT MANAGER 59.0 Triphasic Triphasic 51.4 DPA 51.4 Triphasic 1.0 JAKE 1.2 FINDINGS RT NETWORK ACCOUNT MANAGER 130 RT DPA 100 LT NETWORK ACCOUNT MANAGER 140 LT DPA 130 Mild diffuse plaques in the iliac and femoral arteries Normal arterial Doppler waveforms and velocities Resting JAKE of 1.0 on the right side and 1.2 on the left side CONCLUSIONS No evidence of any significant arterial obstruction, based on the above findings. Mild diffuse plaques in the iliac and femoral arteries bilaterally Dr Nancy Kim MD [facility] (Electronically Signed) Final Date: 30 August 2021 09:18 S
== END 2021-08-29 09:01 | disposition home or self-care (01) ==
LOC: RAD 09:02
PROVIDERS: PCP Family Medicine; Visit Provider Family Medicine
DX: Z01.89 Encounter for other specified special examinations (principal); M79.671 Pain in right foot; M79.672 Pain in left foot; M79.89 Other specified soft tissue disorders; I70.8 Atherosclerosis of other arteries
CPT/HCPCS: 93925

== ENCOUNTER 2021-09-16 06:49 | Outpatient (CLI) | payer OTHER, SELFPAY ==
--- NOTE | 2021-09-16 07:15 | USCV_ITS ---
Hiram Richards Age: 71 Gender: M : 1950 Exam Date: 09/16/2021 07:00 Ordering Phys: Carlyn Childress Technologist: Ashley Wise Exam Location: [facility] [place] Indication: Chest Pain BP: 140 / 78 HR: 66 Rhythm: Sinus Technical Quality: Adequate MEASUREMENTS (Male / Female) Normal Values 2D ECHO LV Diastolic Diameter PLAX 4.4 cm 4.2 - 5.9 / 3.9 - 5.3 cm LV Systolic Diameter PLAX 2.1 cm LV Chamber Size 3.6 cm IVS Diastolic Thickness 1.1 cm 0.6 - 1.0 / 0.6 - 0.9 cm IVS Systolic Thickness 1.5 cm LVPW Diastolic Thickness 1.0 cm 0.6 - 1.0 / 0.6 - 0.9 cm LVPW Systolic Thickness 1.3 cm RV Chamber Size 2.8 cm LVOT Diameter 2.0 cm LV Ejection Fraction 2D Teich 84.8 % LV Ejection Fraction MOD 2C 48.8 % LV Ejection Fraction 2C AL 49.7 % LA Diameter 3.8 cm LA Width 3.3 cm LA Height 4.3 cm RA Width 3.2 cm RA Height 3.9 cm Aorta at Sinotubular Diameter 2.4 cm IVC Diameter 1.6 cm M-MODE Aortic Annulus Diameter 4.0 cm LA Ao Ratio MM 0.8 MV E Point Septal Separation 0.4 cm DOPPLER AV Peak Velocity 127.0 cm/s LVOT Peak Velocity 122.0 cm/s AV Area Cont Eq vti 3.1 cm squared AV Area Cont Eq pk 3.1 cm squared MV Area PHT 3.3 cm squared Mitral E to A Ratio 0.9 MV E' Velocity 49.0 cm/s Mitral E to MV E' Ratio 13.5 Mitral E to LV E' Lateral Ratio 13.1 Mitral E to LV E' Septal Ratio 13.9 TR Peak Velocity 179.1 cm/s TR Peak Gradient 12.8 mmHg TR Mean Velocity 129.3 cm/s TR Mean Gradient 7.5 mmHg TR Velocity Time Integral 42.5 cm TV Peak E Velocity 59.0 cm/s Right Atrial Pressure 3.0 mmHg Pulmonary Artery Systolic Pressu 15.8 mmHg PV Peak Velocity 80.0 cm/s RV Acceleration Time 0.1 s RV Ejection Time 0.3 s RV AcT/ET 0.4 FINDINGS Left Ventricle Normal left ventricular size, systolic function and wall thickness, with no regional wall motion abnormalities. Left ventricular ejection fraction is estimated at 65 %. Normal diastolic function. Right Ventricle Normal right ventricular size and systolic function. Right ventricular systolic pressure 21 mmHg. Right Atrium Normal right atrial size. Right atrial pressure estimated at 3 mmHg. Left Atrium Normal left atrial size. Mitral Valve Structurally normal mitral valve. No mitral valve stenosis. Trace mitral valve regurgitation. Aortic Valve Structurally normal trileaflet aortic valve. No aortic valve stenosis. No aortic valve regurgitation. Tricuspid Valve Structurally normal tricuspid valve. No tricuspid valve stenosis. Trace tricuspid valve regurgitation. Pulmonic Valve Structurally normal pulmonic valve. No pulmonary valve stenosis. Trace pulmonary valve regurgitation. Pericardium Echo free space anterior to the right ventricle likely represents a fat pad. Aorta Normal size aortic root and proximal ascending aorta. Normal- sized inferior vena cava with greater than 50% respiratory variation. CONCLUSIONS 1. Normal left ventricular size, systolic function and wall thickness, with no regional wall motion abnormalities. Left ventricular ejection fraction is estimated at 65 %. Normal diastolic function. 2. Pulmonary artery pressure estimated at 21 mmHg. 3. No significant valvular abnormality. 4. No prior similar studies to compare. Patience Ball MD (Electronically Signed) Final Date: 18 Sep 2021 18:57 S
== END 2021-09-16 06:50 | disposition home or self-care (01) ==
LOC: RAD 06:50
PROVIDERS: PCP Family Medicine; Visit Provider Nurse Practitioner Family
DX: I48.0 Paroxysmal atrial fibrillation (principal); I50.9 Heart failure, unspecified; F17.210 Nicotine dependence, cigarettes, uncomplicated; R97.20 Elevated prostate specific antigen [PSA]; N40.1 Benign prostatic hyperplasia with lower urinary tract symptoms
CPT/HCPCS: 93306; 99214

== ENCOUNTER → 2021-11-19 12:29 | Outpatient (BNVA) | payer OTHER, SELFPAY | PROVIDERS: PCP Family Medicine; Visit Provider Podiatrist Foot & Ankle Surgery | DX: M79.671 Pain in right foot (principal); M79.672 Pain in left foot; G62.9 Polyneuropathy, unspecified; M21.42 Flat foot [pes planus] (acquired), left foot | CPT/HCPCS: 73630; 99204 ==

== ENCOUNTER → 2022-01-01 14:31 | Outpatient (BNVA) | payer OTHER, SELFPAY | PROVIDERS: PCP Family Medicine; Visit Provider Podiatrist Foot & Ankle Surgery | DX: M79.671 Pain in right foot (principal); M79.672 Pain in left foot; G62.9 Polyneuropathy, unspecified; M21.42 Flat foot [pes planus] (acquired), left foot | CPT/HCPCS: 99214 ==

== ENCOUNTER 2022-02-13 08:38 | Outpatient (CLI) | payer OTHER, SELFPAY ==
--- NOTE | 2022-02-13 08:49 | USCV_ITS ---
Hiram Richards Age: 72 Gender: M : 1950 Exam Date: 02/13/2022 09:33 Ordering Phys: Vee Encarnacion MD Technologist: KATINA Exam Location: [facility] [place] Indication: AAA Screening HISTORY: Diameter (cm) AP x Transverse x Length Velocity (cm/s) Waveform Prox Aorta: 2.21 x 2.03 x 94.40 Biphasic Mid Aorta: 1.87 x 2.03 x 105.80 Biphasic Distal Aorta: 1.48 x 1.92 x 117.30 Biphasic Right Iliac Prox: 1.26 x 1.72 x 92.10 Biphasic Left Iliac Prox: 1.15 x 1.34 x 81.80 Biphasic Stent Prox Landing x x Aneurysmal Sac Max x x Lt Lat Sac Dim Rt Lat Sac Dim Stent Dist Landing x x Right Iliac Stent x x Left Iliac Stent x x Right Renal Art Left Renal Art FINDINGS: Comparison: none available. A complete assessment of the abdominal aorta was not possible. Limited by body habitus. Ectatic abdominal aorta with evidence of atherosclerotic plaque noted. No evidence of abdominal aortic aneurysm. There is evidence of atherosclerotic plaque no significan stenosis in the right common iliac artery. There is evidence of atherosclerotic plaque no significan stenosis in the left common iliac artery. CONCLUSIONS No AAA identified but study is limited by body habitus. Dr. Rachael Esparza DO (Electronically Signed) Final Date: 13 February 2022 10:49 S
== END 2022-02-13 08:39 | disposition home or self-care (01) ==
LOC: RAD 08:39
PROVIDERS: PCP Family Medicine; Visit Provider Family Medicine
DX: Z13.6 Encounter for screening for cardiovascular disorders (principal)
CPT/HCPCS: 76706

== ENCOUNTER → 2022-03-05 12:35 | Outpatient (BNVA) | payer OTHER, SELFPAY | PROVIDERS: PCP Family Medicine; Visit Provider Podiatrist Foot & Ankle Surgery | DX: G62.9 Polyneuropathy, unspecified (principal); M21.42 Flat foot [pes planus] (acquired), left foot | CPT/HCPCS: 99214 ==

== ENCOUNTER → 2022-06-18 10:30 | Outpatient (BNVA) | payer OTHER, SELFPAY | PROVIDERS: PCP Family Medicine; Visit Provider Internal Medicine Cardiovascular Disease | DX: I48.0 Paroxysmal atrial fibrillation (principal); I10 Essential (primary) hypertension; N40.1 Benign prostatic hyperplasia with lower urinary tract symptoms; R97.20 Elevated prostate specific antigen [PSA]; F17.210 Nicotine dependence, cigarettes, uncomplicated | CPT/HCPCS: 99214; Q3014 ==

== ENCOUNTER 2022-09-10 09:47 | Outpatient (CLI) | payer OTHER, SELFPAY ==
[2022-09-10 10:50] LABS: Prostate Specific AG Urology 1.46 ng/mL (0-4)
== END 2022-09-10 09:48 | disposition home or self-care (01) ==
LOC: LAB 09:50
PROVIDERS: PCP Family Medicine; Visit Provider Urology
DX: R97.20 Elevated prostate specific antigen [PSA] (principal)
CPT/HCPCS: 36415; 84153

== ENCOUNTER → 2022-09-17 14:17 | Outpatient (BNVA) | payer OTHER, SELFPAY | PROVIDERS: PCP Family Medicine; Visit Provider Urology | DX: N40.1 Benign prostatic hyperplasia with lower urinary tract symptoms (principal); R97.20 Elevated prostate specific antigen [PSA] | CPT/HCPCS: 51798; 81003; 99213 ==

== ENCOUNTER → 2023-03-11 10:34 | Outpatient (BNVA) | payer OTHER, SELFPAY | PROVIDERS: PCP Family Medicine; Visit Provider Podiatrist Foot & Ankle Surgery | DX: M79.671 Pain in right foot (principal); M79.672 Pain in left foot; G62.9 Polyneuropathy, unspecified; M21.42 Flat foot [pes planus] (acquired), left foot | CPT/HCPCS: 99213 ==

== ENCOUNTER → 2023-07-16 12:32 | Outpatient (BNVA) | payer OTHER, SELFPAY | PROVIDERS: PCP Family Medicine; Visit Provider Internal Medicine Cardiovascular Disease | DX: I10 Essential (primary) hypertension (principal); I48.0 Paroxysmal atrial fibrillation; Z79.01 Long term (current) use of anticoagulants; F17.210 Nicotine dependence, cigarettes, uncomplicated | CPT/HCPCS: 99213 ==

== ENCOUNTER 2023-09-02 08:35 | Outpatient (CLI) | payer OTHER, SELFPAY ==
--- NOTE | 2023-09-02 08:43 | USCV_ITS ---
Hiram Richards Age: 73 Gender: M : 1950 Exam Date: 09/02/2023 08:48 Ordering Phys: Vee Encarnacion MD Technologist: ARIANE [place] [facility] [place]: Worsening LE pain Risk Factors: Previous Vascular Surgery: RIGHT LEFT BP: 134.0 / 88.00 BP: 142.0/ 91.00 0 0 Waveform Velocity (cm/s) Velocity (cm/s) Waveform Triphasic 52.3 Iliac Prox 66.8 Triphasic Triphasic 59.0 Iliac Mid 58.9 Triphasic Triphasic Iliac Distal Triphasic 70.5 65.1 Triphasic 66.0 RETORT OPERATOR 99.0 Triphasic Triphasic 79.0 SFA Prox 118.0 Triphasic Triphasic 70.0 SFA Mid 72.0 Triphasic Triphasic 67.0 SFA Dist 56.0 Triphasic Triphasic 56.0 POP 51.0 Triphasic Triphasic 43.0 CENTRIFUGAL SEPARATOR 59.0 Triphasic Triphasic 82.0 DPA 47.0 Triphasic 1.3 JAKE 1.2 FINDINGS CENTRIFUGAL SEPARATOR on both LE are noncompressible. ABIs calculated using DPA pressures Resting JAKE 1.3 on the right and 1.2 on the left Patent arteries with m normal Doppler waveforms CONCLUSIONS Normal resting ABIs bilaterally, suggesting no significant arterial obstruction. Normal Doppler flow velocities and waveforms bilaterally Dr Nancy Kim MD [facility] (Electronically Signed) Final Date: 04 September 2023 00:35 S
== END 2023-09-02 08:36 | disposition home or self-care (01) ==
LOC: RAD 08:35
PROVIDERS: PCP Family Medicine; Visit Provider Family Medicine
DX: M79.605 Pain in left leg (principal); M79.604 Pain in right leg
CPT/HCPCS: 93925

== ENCOUNTER 2024-01-12 13:18 | Emergency (ER) | payer OTHER, MEDICARE, SELFPAY ==
--- NOTE | 2024-01-12 13:21 | ECG_ITS ---
[facility] Test Date: 2024-01-12 Pat Name: Hiram Richards Department: Room: Gender: Male Technical Writer And Editor: : 1950 Requested By: Uriah Saeed Order Number: [id number] Yudy MD: Akhil Downey M.D. Measurements Intervals [place] Rate: 61 P: 49 [place]: 199 QRS: -15 QRSD: 95 T: 40 QT: 370 QTc: 374 Interpretive Statements SINUS RHYTHM Compared to ECG 04/04/2019 09:53:33 No significant changes Electronically Signed On 01-12-2024 16:40:47 CDT by Akhil Downey M.D. [email or web address] [facility]ightgreen[facility] hospitalM[facility].[email or web address]/store/[id number] f
--- NOTE | 2024-01-12 13:25 | XR_ITS ---
WS: [id number] Examination: XR chest 1V portable [id number] Reason for Exam: cp Date: 01/12/2024 Comparison: None. Findings: The heart is prominent in size. The mediastinum is not widened. There is no pulmonary edema. There is no large effusion. There is no dense consolidation. XR/XR chest 1V portable [id number] IMPRESSION: The heart appears prominent in size. I see no failure or focal consolidation.
[2024-01-12 13:29] VITALS: BP 134/85; PULSE 59; TEMP 36.8; O2SAT 96; BMI 29.6
--- NOTE | 2024-01-12 13:52 | W.ED.CHESTPA ---
HPI - Chest Pain General: Chief Complaint: Chest Pain Stated Complaint: Chest pain, headache, sob, blood pressure Time Seen by Provider: 01/12/24 13:41 Source: patient Mode of arrival: ambulatory Limitations: no limitations History of Present Illness: 73-year-old male who states that he is overall weak and he states he had some nausea vomiting with some dyspnea and headache. States today has had some tightness in his chest states he felt like it could been from straining from vomiting states his dyspnea is improved shows vomiting his headache is resolved as well states he had some hypertension through the weekend his blood pressure is improved here. He denies any fevers. Denies any worse improving factors Associated symptoms: Reports dyspnea, nausea and vomiting; Deny abdominal pain or fever(s) Related Data Home Medications Medication Instructions Recorded Confirmed omeprazole 40 mg capsule,delayed 40 mg PO DAILY 05/25/19 07/16/23 release ibuprofen 200 mg tablet (Advil) 200 mg PO Q6H PRN 09/16/21 07/16/23 Previous Rx's Medication Instructions Recorded docusate sodium 100 mg capsule 100 mg PO BID PRN constipation #30 04/21/20 (Colace) caps tamsulosin 0.4 mg capsule 0.4 mg PO DAILY #90 caps 05/09/20 rivaroxaban 20 mg tablet 20 mg PO DAILY #90 tabs 09/16/21 low profile custom insoles with #1 ea 01/03/22 Graphite Orthopedic Shoes with 4 pairs of #1 ea 03/05/22 Diabetic Socks Standard compression socks #4 ea 06/05/22 metoprolol succinate 100 mg 100 mg PO DAILY #90 tabs 07/17/22 tablet,extended release 24 hr diabetic shoes with 3 inserts #1 ea 03/11/23 Allergies Allergy/AdvReac Type Severity Reaction Status Date / Time trazodone Allergy Unknown Unknown Verified 01/12/24 13:33 Review of Systems Const: Denies: fever(s), chills, body aches or change in appetite ENMT: Denies: throat pain or dental pain Card: Reports: chest pain Resp: Reports: dyspnea GI: Reports: nausea and vomiting; Denies: abdominal pain or diarrhea Musc: Denies: neck pain or back pain Skin/Breast: Denies: rash Neuro: Reports: headache(s) PFSH ED PFSH: Medical History Elevated PSA BPH loc w urin obs/LUTS Urinary retention Atrial fibrillation Anticoagulation adequate with anticoagulant therapy Essential hypertension Surgical History S/P cataract extraction Family History Other CAD (coronary artery disease) Cancer Diabetes Social History Smoking and tobacco/nicotine status: current every day tobacco/nicotine user cigarettes Alcohol intake: current Alcohol intake frequency: 0-2 Drinks per Day Substance/Drug Use: never Household members: spouse Marital status: service: Yes branch: [employer] Current occupational status: retired Physical Exam Const: COMMON NORMALS: no acute distress, patient oriented x3 and healthy appearing HENMT: COMMON NORMALS: normocephalic and atraumatic HEAD & SCALP: normocephalic and atraumatic Eye: COMMON NORMALS: Equal, round and reactive pupils present and EOMs intact bilaterally PUPIL: Yes Equal, round and reactive pupils present Neck/C-Spine: COMMON NORMALS: full ROM and supple Chest: COMMONS NORMALS: normal inspection of the chest and normal palpation of entire chest wall Resp: COMMON NORMALS: normal respiratory effort, No retractions, No use of accessory muscles and clear to auscultation bilaterally AUSCULTATION: clear to auscultation bilaterally Cardio: COMMON NORMALS: regular rate, regular rhythm and No murmurs present (Cardio) RATE: regular rate RHYTHM: regular rhythm GI: COMMON NORMALS: Normal to inspection, nondistended, normoactive bowel sounds present, Soft to palpation, non-tender and no masses PALPATION: Yes Soft to palpation Extremity: COMMON NORMALS: normal to inspection and full ROM Neuro: COMMON NORMALS: patient oriented x3, moves all extremities and no focal motor deficits Psych: COMMON NORMALS: mental status grossly normal, Normal thought process present and cooperative THOUGHT PROCESS: Normal thought process present Skin: COMMON NORMALS: no rashes or lesions noted and no wounds GENERAL SKIN EXAM: no rashes or lesions noted Course Vital Signs: Vital signs: Vital Signs Temperature 98.2 F 01/12/24 13:29 Pulse Rate 60 01/12/24 14:30 Respiratory Rate 18 01/12/24 14:10 Blood Pressure 138/95 01/12/24 14:30 Pulse Oximetry 95 01/12/24 14:30 Oxygen Delivery Me thod Room Air 01/12/24 14:30 MDM - Chest Pain Medical Decision Making Patient presents here with chest pain his initial troponin here is normal patient does not want to stay for 2-hour recommended to check a 2-hour troponin but he refused he states he feels improved and just wants to go home his pain has been gone for days and his first troponin is normal he is follow-up with PCP and return if worsening. Medical Records I reviewed the patient's medical records. Lab Data I reviewed the patient's lab results. 01/12/24 13:48 01/12/24 13:48 Radiology Impressions Chest X-Ray 01/12/24 13:25 IMPRESSION: The heart appears prominent in size. I see no failure or focal consolidation. Laboratory Results WBC 6.72 10^3/uL (3.29-11.43) 01/12/24 13:48 RBC 4.31 10^6/uL (3.85-5.65) 01/12/24 13:48 Hgb 12.90 g/dL (11.27-16.99) 01/12/24 13:48 Hct 38.5 % (37-53) 01/12/24 13:48 MCV 89.3 fl (82-101) 01/12/24 13:48 MCH 29.9 pg (27-33) 01/12/24 13:48 MCHC 33.5 g/dL (30-55) 01/12/24 13:48 RDW 14.7 % (12.1-15.1) 01/12/24 13:48 Plt Count 249 10^3/cmm (157-399) 01/12/24 13:48 MPV 9.5 fL (7.4-10.4) 01/12/24 13:48 Neut % (Auto) 61.5 % 01/12/24 13:48 Lymph % (Auto) 29.8 % 01/12/24 13:48 [place] % (Auto) 7.1 % 01/12/24 13:48 Eos % (Auto) 0.9 % 01/12/24 13:48 Baso % (Auto) 0.6 % 01/12/24 13:48 Neut # (Auto) 4.13 10^3/uL (1.8-7.7) 01/12/24 13:48 Lymph # (Auto) 2.0 10^3/uL (0.8-4.8) 01/12/24 13:48 [place] # (Auto) 0.5 10^3/uL (0.2-0.9) 01/12/24 13:48 Eos # (Auto) 0.1 10^3/uL (0.0-0.8) 01/12/24 13:48 Baso # (Auto) 0.0 10^3/uL (0.0-0.1) 01/12/24 13:48 Nucleated RBC % (auto) 0 % 01/12/24 13:48 Nucleated RBCs # 0.0 /100WBC 01/12/24 13:48 PT 15.10 SECONDS (12.1-14.9) H 01/12/24 13:48 INR 1.16 (0.8-1.2) 01/12/24 13:48 Sodium 136 mmol/L (136-145) 01/12/24 13:48 Potassium 4.3 mmol/L (3.5-5.1) 01/12/24 13:48 Chloride 101 mmol/L (98-107) 01/12/24 13:48 Carbon Dioxide 24 mmol/L (22-29) 01/12/24 13:48 Anion Gap 15.3 (5-19) 01/12/24 13:48 BUN 13 mg/dL (8-23) 01/12/24 13:48 Creatinine 0.9 mg/dL (0.7-1.2) 01/12/24 13:48 GFR Calculation Not Reportable 01/12/24 13:48 Glucose 96 mg/dL (65-115) 01/12/24 13:48 Calculated Osmolality 282 mOsm/kg (285-295) L 01/12/24 13:48 Calcium 8.9 mg/dL (8.5-10.5) 01/12/24 13:48 Total Bilirubin 0.3 mg/dL (0.15-1.2) 01/12/24 13:48 AST 15 U/L (0-40) 01/12/24 13:48 ALT 12 U/L (0-41) 01/12/24 13:48 Alkaline Phosphatase 89 U/L (40-130) 01/12/24 13:48 Troponin T Baseline < 6 ng/L (0-15) 01/12/24 13:48 Total Protein 6.8 g/dL (6.6-8.7) 01/12/24 13:48 Albumin 4.0 g/dL (3.5-5.2) 01/12/24 13:48 Globulin 2.8 g/dL (1.3-4.6) 01/12/24 13:48 Lipase 24 U/L (13-60) 01/12/24 13:48 SARS-CoV-2 Ag (Rapid) Negative (Negative) 01/12/24 14:07 All radiology interpretation(s) finalized by discharge EKG Data EKG 1: I personally reviewed and interpreted this EKG as follows: EKG interpretation date: 01/12/24 EKG interpretation time: 13:21 Interpretation: nsr hr [address] or t wave abnormalities qrs 95 qtc 373 Discharge Plan Discharge Patient Disposition: Home Clinical Impression: Chest pain Condition: Stable Prescriptions: No Action omeprazole 40 mg capsule,delayed release(DR/EC) 40 mg PO DAILY tamsulosin 0.4 mg capsule 0.4 mg PO DAILY Qty: 90 3RF ibuprofen [Advil] 200 mg tablet 200 mg PO Q6H PRN Xarelto 20 mg tablet 20 mg PO DAILY Qty: 90 3RF Rx Instructions: must administer with [place] meal [place] [place] Orth[place] Shoes with 4 pairs of Diabetic Socks See Rx Instructions .Route .MEDSUPPLY Qty: 1 0RF Rx Instructions: As directed [employer] ([facility] [place] diabetic shoes with 3 inserts See Rx Instructions .Route .MEDSUPPLY Qty: 1 0RF Rx Instructions: As directed to the [employer] ([facility] [place] low profile custom insoles with Graphite See Rx Instructions .Route .MEDSUPPLY Qty: 1 0RF Rx Instructions: As directed [place] [place] Standard compression socks See Rx Instructions .Route .MEDSUPPLY Qty: 4 0RF Rx Instructions: As directed metoprolol succinate 100 mg tablet extended release 24 hr 100 mg PO DAILY Qty: 90 3RF Rx Instructions: allow 24 hours between stopping diltiazem and starting metoprolol Colace 100 mg capsule 100 mg PO BID PRN (Reason: constipation) Qty: 30 0RF Discharge Orders: Discharge ED (Routine); Ordered 01/12/24 Ordered By: Uriah Saeed Referrals: Vee Encarnacion MD [Primary Care Provider] - 4-7 days Discharge Diet: Advance as tolerated Discharge Activity: Resume usual activity Patient Instructions: Chest Pain (ED) Coding Level of Care Code ED Plater Production for Courtney Peterson
[2024-01-12 14:01] LABS: Basophils % 0.6 %; Eosinophils # 0.1 10^3/uL (0.0-0.8); Eosinophils % 0.9 %; Hematocrit 38.5 % (37-53); Lymphocytes % 29.8 %; Mean Corpuscular HGB Conc 33.5 g/dL (30-55); Mean Corpuscular Hemoglobin 29.9 pg (27-33); Mean Corpuscular Volume 89.3 fl (82-101); Mean Platelet Volume 9.5 fL (7.4-10.4); Monocytes # 0.5 10^3/uL (0.2-0.9); Monocytes % 7.1 %; Neutrophils # 4.13 10^3/uL (1.8-7.7); Neutrophils % 61.5 %; Nucleated Red Blood Cells % 0 %; Platelet Count 249 10^3/cmm (157-399); Red Blood Count 4.31 10^6/uL (3.85-5.65); Red Cell Distribution Width 14.7 % (12.1-15.1); White Blood Count 6.72 10^3/uL (3.29-11.43)
[2024-01-12 14:07] LABS: INR 1.16 (0.8-1.2)
[2024-01-12 14:10] VITALS: BP 136/95; PULSE 71; RESP 18; O2SAT 95
[2024-01-12 14:14] LABS: Troponin(5th) Baseline < 6 ng/L (0-15)
[2024-01-12 14:16] LABS: Alanine Aminotransferase 12 U/L (0-41); Alkaline Phosphatase 89 U/L (40-130); Anion Gap 15.3 (5-19); Aspartate Amino Transferase 15 U/L (0-40); Blood Urea Nitrogen 13 mg/dL (8-23); Calcium 8.9 mg/dL (8.5-10.5); Carbon Dioxide 24 mmol/L (22-29); Chloride 101 mmol/L (98-107); Creatinine Clr Calc Pharmacy 81.3736; Globulin 2.8 g/dL (1.3-4.6); Glucose 96 mg/dL (65-115); Lipase 24 U/L (13-60); Osmolality Calculated 282 mOsm/kg (285-295); Potassium 4.3 mmol/L (3.5-5.1); Sodium 136 mmol/L (136-145); Total Bilirubin 0.3 mg/dL (0.15-1.2); Total Protein 6.8 g/dL (6.6-8.7)
[2024-01-12 14:30] VITALS: BP 138/95; PULSE 60; O2SAT 95
[2024-01-12 14:53] LABS: SARS Covid-2 Antigen Negative (Negative)
--- NOTE | 2024-01-12 15:10 | PC.NURSE ---
pt requesting to leave now. dr taylor notified.
[2024-01-12 15:12] VITALS: BP 150/95; PULSE 68; O2SAT 97
== END 2024-01-12 15:13 | disposition home or self-care (01) ==
PROVIDERS: Emergency Provider Emergency Medicine; PCP Family Medicine
DX: R07.9 Chest pain, unspecified (principal); Z11.52 Encounter for screening for COVID-19; I10 Essential (primary) hypertension; F17.210 Nicotine dependence, cigarettes, uncomplicated
CPT/HCPCS: 36415; 71045; 80053; 83690; 84484; 85025; 85610; 87426; 93005; 99285

== ENCOUNTER → 2024-04-21 13:44 | Outpatient (BNVA) | payer OTHER, SELFPAY | PROVIDERS: PCP Family Medicine; Referring Provider Family Medicine; Visit Provider Dermatology | DX: L82.1 Other seborrheic keratosis (principal); D22.5 Melanocytic nevi of trunk; D48.5 Neoplasm of uncertain behavior of skin; B07.8 Other viral warts | CPT/HCPCS: 11104; 17110; 99203 ==

== ENCOUNTER → 2024-08-15 07:33 | Outpatient (BNVA) | payer OTHER, SELFPAY | PROVIDERS: PCP Family Medicine; Visit Provider Podiatrist Foot & Ankle Surgery | DX: M79.671 Pain in right foot (principal); M79.672 Pain in left foot; G62.9 Polyneuropathy, unspecified; M21.42 Flat foot [pes planus] (acquired), left foot | CPT/HCPCS: 99213 ==

== ENCOUNTER 2024-09-19 09:51 | Outpatient (CLI) | payer OTHER, SELFPAY ==
--- NOTE | 2024-09-19 10:01 | MM_ITS ---
WS: [id number] DIAGNOSTIC BILATERAL DIGITAL BREAST TOMOSYNTHESIS MAMMOGRAPHY WITH CAD HISTORY: R BREAST MASS, male patient. COMPARISON: None available. TECHNIQUE: Bilateral craniocaudad, mediolateral oblique, and mediolateral views are submitted with tomosynthesis and SM. Spot compression bilateral CC. Computer aided detection utilized. Breast composition: The breasts are almost entirely fatty. Very slight increase soft tissue posterior to the nipples consistent with minimal gynecomastia. There is no nipple retraction or suspicious grouping of calcifications. Ultrasound recommended. MM/MM diag BI tomosynthesis [id number] IMPRESSION: BI-RADS: 0 - Incomplete: Need additional imaging evaluation. FOLLOW UP: Need Additional Imaging Bilateral breast ultrasound to the retroareolar region is recommended. Patient was unable to remain for the ultrasound during today's exam. Patient has reques aster reschedule for the ultrasound.
== END 2024-09-19 09:52 | disposition home or self-care (01) ==
PROVIDERS: PCP Family Medicine; Visit Provider Nurse Practitioner Family
DX: N63.41 Unspecified lump in right breast, subareolar (principal); R92.313 Mammographic fatty tissue density, bilateral breasts
CPT/HCPCS: 77062; G0279

== ENCOUNTER 2024-10-10 09:30 | Outpatient (CLI) | payer OTHER, SELFPAY ==
--- NOTE | 2024-10-10 09:34 | US_ITS ---
WS: [id number] ULTRASOUND RIGHT BREAST HISTORY: UNSPECIFIED LUMP IN R BREAST,SUBAREOLAR COMPARISON: Mammogram 09/19/2024 TECHNIQUE: 2-D and Doppler. Ultrasound performed in the retroareolar region. There is gynecomastia. This corresponds to the mammographic abnormality. There is also a very minimally complex cystic structure measuring 4 x 3 x 4 mm. There is slight through transmission. US/US breast BI limited* [id number] IMPRESSION: BI-RADS: 3 - Probably Benign. FOLLOW-UP: 6 Month Follow-up Recommend RIGHT breast ultrasound follow-up in 6 months to reevaluate the proba ble complex cyst in the retroareolar region.
== END 2024-10-10 09:31 | disposition home or self-care (01) ==
LOC: RAD 09:31
PROVIDERS: PCP Family Medicine; Visit Provider Nurse Practitioner Adult Health
DX: N63.41 Unspecified lump in right breast, subareolar (principal); N62 Hypertrophy of breast
CPT/HCPCS: 76642